=== PATIENT | female | born 1990 | race Caucasian/White ===

== ENCOUNTER 2020-07-22 23:11 | Emergency (ER) | payer OTHER | END 2020-07-23 01:13 | disposition other institution (70) | LOC: ED 23:11 | DX: Z02.89 Encounter for other administrative examinations (principal) ==

== ENCOUNTER 2020-07-22 23:11 | Emergency (ER) | payer MEDICAID ==
[~2020-07-22] VITALS: Ht 165.1 cm; Wt 74.8 kg
[2020-07-22 23:22] VITALS: Ht 165.1 cm; Wt 74.8 kg
[2020-07-23 01:13] VITALS: BP 138/105
== END 2020-07-23 01:13 | disposition other institution (70) ==
LOC: ED 23:11
DX: S20.213A Contusion of bilateral front wall of thorax, initial encounter (principal); R11.2 Nausea with vomiting, unspecified; V49.9XXA Car occupant (driver) (passenger) injured in unspecified traffic accident, initial encounter; Y93.89 Activity, other specified; Y92.89 Other specified places as the place of occurrence of the external cause; Y99.8 Other external cause status